=== PATIENT | male | born 1935 | race Caucasian/White ===

== ENCOUNTER 2024-11-21 13:53 | Inpatient (IN) | payer OTHER ==
[2024-11-21 15:04] LABS: ABSOLUTE IMMATURE GRANULOCYTES 0.49 x10^3/uL (0.0-0.031); BASOPHILS # 0.07 x10^3/uL (0.01-0.08); HEMATOCRIT 54.3 % (40.1-51.0); HEMOGLOBIN 17.3 g/dL (13.7-17.5); MCHC 31.9 g/dl (32.3-36.5); MEAN PLT VOLUME 11.1 fl (9.4-12.4); MONOCYTE # 1.09 x10^3/uL (0.30-0.82); MONOCYTE % 6.6 % (5.3-12.2); PLATELET COUNT 259 x10^3/uL (163-337); RDW 15.4 % (12.6-16.6)
[2024-11-21] MEDS: LACTATED RINGERS SOLUTION 1000 ML INFUS.BAG IV ONE (15:10)
[2024-11-21 16:19] LABS: CHLORIDE 107 mmol/L (98-107); POTASSIUM 4.4 mmol/L (3.5-5.1); SODIUM 145 mmol/L (136-145)
[2024-11-21 16:21] LABS: CALCIUM 8.6 mg/dL (8.5-10.1)
[2024-11-21 16:22] LABS: ALBUMIN 2.8 g/dl (3.4-5.0); ANION GAP 20 mmol/L (4-13); CO2 18 mmol/L (21-32); GLUCOSE,RANDOM 92 mg/dL (74-106); MAGNESIUM 2.6 mg/dL (1.8-2.4)
[2024-11-21 16:25] LABS: CREATININE 5.8 mg/dL (0.55-1.3); PHOSPHOROUS 6.4 mg/dL (2.5-4.9); SGOT/AST 87 U/L (15-37); SGPT/ALT 72 U/L (13-61)
[2024-11-21 16:27] LABS: BILIRUBIN,TOTAL 1.4 mg/dL (0.2-1); TOT PROT 5.4 g/dl (6.4-8.2)
[2024-11-21 16:28] LABS: ALK PHOS 149 U/L (45-117)
[2024-11-21 16:30] LABS: BLOOD UREA NITROGEN 112.2 mg/dL (7-18)
[2024-11-21 17:50] LABS: VENOUS BASE EXCESS -4.7 mmol/L (-2-2); VENOUS PCO2 36.7 mmHg (38-52); VENOUS PH 7.356 (7.310-7.410)
[2024-11-21] MEDS: LACTATED RINGERS SOLUTION 1,000 ML/1,000 ML INFUS.BAG IV SCH (18:01)
[2024-11-21 18:08] LABS: EPI CELLS 34 /uL (0-25.1); HYALINE CASTS 26 /uL (0-3.1); URINE APPEARANCE CLOUDY; URINE BACTERIA 11 /uL (0-1359); URINE BILIRUBIN NEGATIVE (NEGATIVE); URINE COLOR DK YELLOW; URINE GLUCOSE (UA) NEGATIVE (NEGATIVE); URINE KETONE TRACE (NEGATIVE); URINE LEUK ESTERASE NEGATIVE (NEGATIVE); URINE NITRITE NEGATIVE (NEGATIVE); URINE PROTEIN 1+ (NEGATIVE); URINE RBC 174 /uL (0-23.9)
[2024-11-21] MEDS ORDERED: HYDROCORTISONE SOD SUCCINATE 100 MG/2 ML VIAL ONE (18:14)
[2024-11-21] MEDS: HYDROCORTISONE SOD SUCCINATE 100 MG/2 ML VIAL IVPUSH ONE (18:51)
[2024-11-21] MEDS ORDERED: VANCOMYCIN 1 GM PREMIX (F) 1 GM/200 ML BAG ONE (18:53)
[2024-11-21] MEDS ORDERED: PIPERACILLIN/TAZOB 4.5 GM 4.5 GM/100 ML BAG IVPB ONE (18:54)
[2024-11-21] MEDS: PIPERACILLIN/TAZOB 4.5 GM 4.5 GM in DEXTROSE 5%-WATER 100 ML IVPB ONE (18:56)
[2024-11-21 19:10] LABS: URINE WBC 70.3 /uL (0-25.8)
[2024-11-21] MEDS: VANCOMYCIN 1 GM PREMIX (F) 1 GM/200 ML BAG IVPB ONE (19:24)
[2024-11-21 22:54] LABS: LACTIC ACID 2.7 mmol/L (0.4-2.0)
[2024-11-22] MEDS: LEVOTHYROXINE SODIUM 100 MCG 5 ML VIAL IVPUSH ONE (00:30)
[2024-11-22 01:51] VITALS: BMI 28.3
[2024-11-22] MEDS: SODIUM CHLORIDE 1,000 ML IV SCH (02:18)
[2024-11-22] MEDS: VANCOMYCIN 1,000 MG in DEXTROSE 5%-WATER - 250 ML IVPB ONE (04:04)
[2024-11-22] MEDS: HYDROCORTISONE SOD SUCCINATE 100 MG/2 ML VIAL IVPUSH SCH (04:08)
[2024-11-22 07:17] LABS: ABSOLUTE IMMATURE GRANULOCYTES 0.43 x10^3/uL (0.0-0.031); BASOPHILS # 0.09 x10^3/uL (0.01-0.08); HEMOGLOBIN 15.6 g/dL (13.7-17.5); MCHC 31.2 g/dl (32.3-36.5); MEAN CELL VOLUME 91.9 fl (79.0-92.2); MEAN PLT VOLUME 11.3 fl (9.4-12.4); MONOCYTE % 7.3 % (5.3-12.2); PLATELET COUNT 235 x10^3/uL (163-337); RDW 15.6 % (12.6-16.6)
[2024-11-22 07:31] LABS: CHLORIDE 108 mmol/L (98-107); POTASSIUM 4.5 mmol/L (3.5-5.1); SODIUM 142 mmol/L (136-145)
[2024-11-22 07:35] LABS: CALCIUM 7.8 mg/dL (8.5-10.1)
[2024-11-22 07:36] LABS: ALBUMIN 2.5 g/dl (3.4-5.0); ANION GAP 16 mmol/L (4-13); CO2 18 mmol/L (21-32); GLUCOSE,RANDOM 103 mg/dL (74-106)
[2024-11-22 07:39] LABS: CREATININE 6.1 mg/dL (0.55-1.3); SGOT/AST 65 U/L (15-37); SGPT/ALT 59 U/L (13-61)
[2024-11-22 07:41] LABS: BILIRUBIN,TOTAL 1.3 mg/dL (0.2-1); TOT PROT 4.6 g/dl (6.4-8.2)
[2024-11-22 07:42] LABS: ALK PHOS 122 U/L (45-117)
[2024-11-22 07:43] LABS: BLOOD UREA NITROGEN 121.5 mg/dL (7-18); LACTIC ACID 3.2 mmol/L (0.4-2.0)
[2024-11-22] MEDS: LEVOTHYROXINE SODIUM 100 MCG 5 ML VIAL IVPUSH SCH (09:21)
[2024-11-22] MEDS ORDERED: LEVOTHYROXINE SODIUM 100 MCG 5 ML VIAL IVPUSH SCH (10:00)
[2024-11-22] MEDS: DEXTROSE 5%-0.45% SALINE 1,000 ML IV SCH (14:22)
[2024-11-22] MEDS: CEFTRIAXONE 1 GM in DEXTROSE 5%-WATER - 50 ML IVPB SCH (14:23)
[2024-11-23] MEDS: PANTOPRAZOLE 40 MG TABLET PO SCH (09:52)
[2024-11-23 11:19] LABS: HEMOGLOBIN 15.7 g/dL (13.7-17.5); MEAN PLT VOLUME 11.3 fl (9.4-12.4)
[2024-11-23 11:21] LABS: MCHC 31.4 g/dl (32.3-36.5); MEAN CELL VOLUME 92.3 fl (79.0-92.2); PLATELET COUNT 194 x10^3/uL (163-337); RDW 15.9 % (12.6-16.6)
[2024-11-23 11:41] LABS: CHLORIDE 106 mmol/L (98-107); POTASSIUM 5.2 mmol/L (3.5-5.1); SODIUM 141 mmol/L (136-145)
[2024-11-23 11:47] LABS: CALCIUM 7.4 mg/dL (8.5-10.1)
[2024-11-23 11:48] LABS: ALBUMIN 2.4 g/dl (3.4-5.0); ANION GAP 19 mmol/L (4-13); CO2 17 mmol/L (21-32); GLUCOSE,RANDOM 219 mg/dL (74-106); MAGNESIUM 2.6 mg/dL (1.8-2.4)
[2024-11-23 11:51] LABS: PHOSPHOROUS 7.6 mg/dL (2.5-4.9); SGOT/AST 75 U/L (15-37); SGPT/ALT 54 U/L (13-61)
[2024-11-23 11:52] LABS: BILIRUBIN,TOTAL 0.9 mg/dL (0.2-1); TOT PROT 4.8 g/dl (6.4-8.2)
[2024-11-23 11:53] LABS: ALK PHOS 125 U/L (45-117)
[2024-11-23 11:57] LABS: BLOOD UREA NITROGEN 145.9 mg/dL (7-18); CREATININE 7.7 mg/dL (0.55-1.3)
[2024-11-23] MEDS: MORPHINE SULFATE/0.9% NACL/PF 100 MG/100 ML BAG IVPB SCH (16:11)
[2024-11-24 03:54] VITALS: TEMP 99
[2024-11-24 06:59] VITALS: BP 67/39; PULSE 104; RESP 7
== END 2024-11-24 08:50 | disposition expired | DRG 871 ==
LOC: JER 13:53 → JERBED 22:19 → J2W 11-22 00:48
PROVIDERS: ADMIT Internal Medicine; ATTEND Internal Medicine
DX: A41.89 Other specified sepsis (principal); E03.5 Myxedema coma; J96.90 Respiratory failure, unspecified, unspecified whether with hypoxia or hypercapnia; J18.9 Pneumonia, unspecified organism; N17.9 Acute kidney failure, unspecified; E87.20 Acidosis, unspecified; I10 Essential (primary) hypertension; E78.5 Hyperlipidemia, unspecified; E03.9 Hypothyroidism, unspecified; R53.1 Weakness; L89.151 Pressure ulcer of sacral region, stage 1; L89.212 Pressure ulcer of right hip, stage 2; I46.9 Cardiac arrest, cause unspecified
CPT/HCPCS: 0241U-QW; 36415; 70450-TC; 71045-TC-FY; 72125-TC; 76705-TC; 76775-TC; 80053; 81003; 82533; 82550; 82553; 82803; 82962; 83605; 83735; 83880; 84100; 84439; 84443; 84484; 85025; 86850; 86900; 86901; 87040; 87086; 93005; 93010; 93306-TC; 99285-25